=== PATIENT | female | born 1960 | race Hispanic/Latino ===

== ENCOUNTER 2019-08-21 22:38 | Emergency (ER) | payer OTHER ==
[2019-08-21] MEDS ORDERED: ONDANSETRON HCL 4 MG/2 ML VIAL ONE (22:58)
[2019-08-21] MEDS ORDERED: MORPHINE SULFATE 4 MG/1ML SYG ONE ×2 (22:59→23:55)
[2019-08-21 23:17] LABS: APPEARANCE,URINE Clear (CLEAR); BILIRUBIN,URINE Negative (NEGATIVE); COLOR,URINE Yellow (YELLOW); GLUCOSE, URINE (UA) Negative (NEGATIVE); KETONES,URINE Negative (NEGATIVE); LEUKOCYTE ESTERASE ,URINE Moderate (NEGATIVE); NITRATE,URINE Negative (NEGATIVE); OCCULT BLOOD,URINE Negative (NEGATIVE); PH,URINE 7.5 (5.0-8.0); PROTEIN,URINE Negative (NEGATIVE)
[2019-08-21 23:22] LABS: POTASSIUM 3.5 mmol/L (3.5-5.1)
[2019-08-21 23:27] LABS: ALBUMIN 3.8 g/dL (3.5-5.0); BILIRUBIN,TOTAL 0.3 mg/dL (0.2-1.0); TOTAL PROTEIN, SERUM 7.6 g/dL (6.0-8.3)
[2019-08-21 23:29] LABS: BASOPHILS % (AUTO) 0.1 % (0.0-5.0); EOSINOPHILS % (AUTO) 1.1 % (0.0-8.0); HEMATOCRIT 40.9 % (36-48); LYMPHOCYTES % (AUTO) 30.3 % (21.0-51.0); MEAN CORPUSCULAR HEMOGLOBIN 29.3 pg (27.0-33.0); MEAN CORPUSCULAR HGB CONC 33.7 g/dL (32.0-36.0); MEAN CORPUSCULAR VOLUME 86.9 fL (79-99); MONOCYTES % (AUTO) 8.4 % (3.0-13.0); NEUTROPHILS % (AUTO) 60.1 % (40.0-77.0); PLATELET COUNT (AUTO) 249 K/uL (130-400); RED CELL DISTRIBUTION WIDTH 13.7 % (11.0-15.5); WHITE BLOOD COUNT (AUTO) 9.5 K/uL (4.8-10.8)
[2019-08-21] MEDS ORDERED: IOHEXOL 350 MG/ML 100ML INFUS..BTL IV ONE (23:29)
[2019-08-21 23:31] LABS: RBC,URINE 0-1 /HPF (0-1)
[2019-08-21 23:32] LABS: BACTERIA,URINE Moderate /HPF (None Seen); MUCUS,URINE Few LPF (None Seen)
== END 2019-08-22 01:04 | disposition home or self-care (01) ==
LOC: EDH 22:38
DX: S20.211A Contusion of right front wall of thorax, initial encounter (principal); S39.81XA Other specified injuries of abdomen, initial encounter; Z90.49 Acquired absence of other specified parts of digestive tract; W18.39XA Other fall on same level, initial encounter; Y93.89 Activity, other specified; Y92.89 Other specified places as the place of occurrence of the external cause; Y99.8 Other external cause status
CPT/HCPCS: 36415; 71260; 74177; 80053; 81001; 83690; 85025; 87088; 96374; 96376; 99285; J2270 ×2; J2405; Q9967

== ENCOUNTER 2024-05-31 11:01 | Emergency (ER) | payer OTHER, SELFPAY ==
[~2024-05-31] VITALS: Ht 170.2 cm; Wt 83.9 kg
[2024-05-31] MEDS: KETOROLAC 15MG/ML VIAL (15MG/ML) IV ONE (12:36)
[2024-05-31 14:45] VITALS: TEMP 98.9
[2024-05-31] MEDS: acetaMINOPHEN 500 MG TABLET PO ONE (14:45)
[2024-05-31 15:02] VITALS: BP 130/80; PULSE 82; RESP 16; O2SAT 100
== END 2024-05-31 14:59 | disposition home or self-care (01) ==
LOC: EDH 11:01
DX: R07.81 Pleurodynia (principal); M79.602 Pain in left arm; M25.562 Pain in left knee; K21.9 Gastro-esophageal reflux disease without esophagitis; Z90.49 Acquired absence of other specified parts of digestive tract; W01.0XXA Fall on same level from slipping, tripping and stumbling without subsequent striking against object, initial encounter; Y93.01 Activity, walking, marching and hiking; Y92.89 Other specified places as the place of occurrence of the external cause; Y99.8 Other external cause status
CPT/HCPCS: 99284; 96374; 71046; 73090; 73562; J1885